=== PATIENT | male | born 1935 | race Caucasian/White ===

== ENCOUNTER → 2024-05-19 13:39 | Outpatient (CLI) | payer OTHER, SELFPAY ==
--- NOTE | 2024-05-19 13:43 | DI.RAD.S_ITS ---
PROCEDURE: XR CHEST 2V INDICATIONS: Chronic obstructive pulmonary disease, unspecified TECHNIQUE: 2 views of the chest were acquired. COMPARISON: None. FINDINGS: Surgical changes and devices: Median sternotomy wires are seen. Lungs and pleura: There is blunting of right costophrenic angle suggestive of small right pleural effusion. Likely calcified pleural plaques are noted in bilateral lung tenorio. No definite focal infiltrate. No pneumothorax. Mediastinum: Mediastinal contours are normal. Heart size is normal. Bones and chest wall: No suspicious bony abnormalities. Soft tissues appear unremarkable. IMPRESSION: Likely calcified pleural plaques scattered in bilateral lung tenorio suggestive of prior asbestos exposure. Small right pleural effusion. No definite focal infiltrate. No pneumothorax. If indicated, CT of chest can be done for further evaluation of bilateral lung tenorio. Dictated by: Luis Miguel Miller M.D. on 05/19/2024 at 15:58 Approved by: Luis Miguel Miller M.D. on 05/19/2024 at 16:00
== END ==
PROVIDERS: PCP Psychiatry & Neurology Psychiatry; Referring Provider Chiropractor; Visit Provider Chiropractor
DX: J44.9 Chronic obstructive pulmonary disease, unspecified (principal); Z87.891 Personal history of nicotine dependence; R94.2 Abnormal results of pulmonary function studies; J90 Pleural effusion, not elsewhere classified
CPT/HCPCS: 71046; 94060